=== PATIENT | male | born 1970 | race Caucasian/White ===

== ENCOUNTER 2023-08-21 02:48 | Emergency (ER) | payer BC ==
--- NOTE | 2023-08-21 02:58 | ED Physician Documentation ---
History of Present Illness - Stated complaint Stated Complaint: RT KNEE PX/SWOLLEN - Chief complaint Chief Complaint: Ext Problem - History obtained from History obtained from: Patient - Additonal information Additional information: HPI from patient. Patient complains of right knee pain, swelling, and erythema of gradual onset approximately 2 days ago. Denies injury. Denies history of similar symptoms. Pain is exacerbated with weight-bearing as well as movement (specifically with flexion of the right knee). Patient had air travel approximately 1 and half weeks ago. He denies chest pain, shortness of breath. Review of Systems Constitutional: denies: Fever, Chills, Sweats Cardiac: denies: Chest pain / pressure Respiratory: denies: Dyspnea, Cough Musculoskeletal: reports: Joint pain, Joint swelling, Pain with weight bearing PD PAST MEDICAL HISTORY - Past Medical History Past Medical History: Yes Psych: Depression - Present Medications Home Medications: Ambulatory Orders Medication Instructions Recorded Confirmed Doxycycline [Vibramycin] 100 mg PO BID #14 tablet 08/21/23 HYDROcod/ACETAM 5/325 [[place] 5/325] 1 - 2 tablet PO Q6H PRN #14 tablet 08/21/23 Sertraline HCl [Zoloft] 150 mg PO DAILY 08/21/23 08/21/23 buPROPion HCL [Bupropion HCl] 100 mg PO DAILY 08/21/23 08/21/23 - Allergies Allergies/Adverse Reactions: Allergies Allergy/AdvReac Type Severity Reaction Status Date / Time No Known Drug Allergies Allergy Verified 08/21/23 03:02 PD ED PE NORMAL - Vitals Vital signs reviewed: Yes - General General: Alert and oriented X 3, No acute distress, Well developed/nourished - Respiratory Respiratory: No respiratory distress PD ED PE EXPANDED - Extremities Extremities: Other (mild/faint, poorly-marginated erythema with mild swelling superiomedial aspect of right knee. the knee is nontender and ROM is intact although pain is exacerbated with full flexion. No abnormal warmth/heat to touch) Results - Vitals Vitals: Vital Signs - 24 hr 08/21/23 02:50 Temperature 36.7 C Heart Rate 78 Respiratory 16 Rate Blood Pressure 139/94 H O2 Saturation 100 Oxygen O2 Source Room air PD Medical Decision Making - ED course Complexity details: considered differential, d/w patient ED course: Presents with 2 days of atraumatic right knee pain, swelling, and faint erythema. Doubt septic arthritis given lack of tenderness to palpation, lack of abnormal warmth/heat to touch, and intact ROM (although pain is worse with full flexion). Given doxycycline for possible cellulitis although the erythema is without sharp/distinct margins. Also concern for possible DVT considering recent air travel, although lack of distal (ankle/foot) swelling make this less suspect; ultrasound is not available until later this morning. After discussion of DVT as a possibility, patient agrees with SQ lovenox (1mg/kg is given) as a bridge until he can have the US later today during US hours; he understands that this will entail checking back into the ED in order to have the study performed, and that he should arrive after 7 AM but no later than noon. Departure - Departure Disposition: 01 Home, Self Care Clinical Impression: Cellulitis Qualifiers: Site of cellulitis: extremity Site of cellulitis of extremity: lower extremity Laterality: right Qualified Code(s): L03.115 - Cellulitis of right lower limb Condition: Good Instructions: ED Infec Skin Cellulitis Follow-Up: CHRISTELLE MOORE [Primary Care Provider] - Prescriptions: HYDROcod/ACETAM 5/325 [[place] 5/325] 1 - 2 tablet PO Q6H PRN #14 tablet PRN Reason: Pain Doxycycline [Vibramycin] 100 mg PO BID #14 tablet Comments: Some of the findings on the physical exam are consistent with cellulitis (skin infection); you were given the first dose of an antibiotic (doxycycline) in the emergency department which should cover the typical bacterial causes of such an infection. I have electronically submitted a prescription for a 1-week course of this antibiotic to the [facility] in [place]. I have also sent a prescription for vicodin (opiate/narcotic pain medication), as well. Another possible cause of your knee pain and swelling is a DVT (deep vein thrombosis, blood clot in one of the deep veins of the leg); your recent airplane trips are a potential risk factor for DVT. The diagnosis of DVT requires an ultrasound, but the utility mechanic supervisor is not available until later today. You were given a one-time dose (injection) of a blood-thinning medication (Lovenox) as a bridge until an ultrasound can be performed later today. As we discussed, unfortunately, this means you we will need to return to the emergency department later today for this ultrasound. If there is a blood clot on the ultrasound, the on-duty emergency department physician will prescribe an oral blood-thinning medication for you. If the ultrasound is negative for blood clot, you will not need any more blood thinners. The ul trasonographer hours today are from 7 AM until 5 PM, but you should aim to arrive no later than noon today (if the emergency department is particularly busy, it can sometimes take quite some time to be evaluated by the on-duty physician who can then order the ultrasound). There are other possible causes of your symptoms such as bursitis, osteoarthritis, and gout. These possibilities can be looked into by your primary care provider in follow-up if your ultrasound does not demonstrate the cause of your symptoms (such as a blood clot) and if the antibiotic does not lead to resolution of your symptoms. I recommend that you contact your primary care provider when their office is next open to arrange for a follow-up appointment within 5 to 7 days for reevaluation. I am prescribing a short course of narcotic pain medication for you. These are potentially dangerous and addictive medications that should be used carefully. These medications may constipate you. Take an [id number] stool softener (docusate) twice daily with plenty of water while taking these medications. If you go 24 hours without a bowel movement, take [id number] miralax, per package instructions. Do not drink or drive while taking these medications. If you received narcotic or sedating medications while in the emergency department, do not drive for 24 hours. Store this medication in a safe, secure place and out of reach of children. It is a violation of federal law to give or sell this medication to another person or to use in a manner other than prescribed. The ED will not refill narcotic prescriptions, including prescriptions lost or stolen. To dispose of unwanted medications: 1. [facility] [address] [facility] in [place] has a medication drop box. They accept prescription medications (in pill form) Tuesday through Tuesday 9:00 a.m. to 5:00 p.m. 2. The [facility] [employer] accepts prescription medications (in pill form only) for disposal year round. Call for more information. 3. Contact the [facility] for the next [facility] sponsored prescription drug collection event. , [phone], or [phone]; Forms: Activity restrictions Discharge Date/Time: 08/21/23 03:55
[2023-08-21 03:05] VITALS: BP 139/94; O2SAT 100
[2023-08-21] MEDS: DOXYCYCLINE 100 MG TABLET PO STA (03:39)
[2023-08-21] MEDS: HYDROcod/ACETAM 5/325 MG TABLET PO STA (03:39)
[2023-08-21] MEDS: ENOXAPARIN 100 MG/ML SYRINGE SUBQ STA (03:44)
== END 2023-08-21 03:55 | disposition home or self-care (01) ==
LOC: ED 02:48
DX: L03.115 Cellulitis of right lower limb (principal)
CPT/HCPCS: 96372; 99284; A9270; J1650

== ENCOUNTER 2023-08-21 11:42 | Emergency (ER) | payer BC ==
[2023-08-21 11:51] VITALS: BP 140/90; O2SAT 96
--- NOTE | 2023-08-21 12:59 | ED Physician Documentation ---
PD HPI LOWER EXT INJURY - Stated complaint Stated Complaint: RT KNEE PX - Chief complaint Chief Complaint: Ext Problem - History obtained from History obtained from: Patient - History of Present Illness PD HPI LOW EXT INJURY LOCATION: Right, Knee, Lower leg, Calf (and back of knee.) Type of injury: No: Fall, Twist Timing - duration: Days Timing - details: Gradual onset, Still present Associated symptoms: Swelling (medial side of knee and towards back of calf laterally. Feels some tenderness in area.), Discolored (redness of the area.). No: Weakness, Numbness Recently seen: Emergency Dept (seen last night for the knee/leg pain. See prior ED note. Here for US leg as that was not able to be done at that hour.) PD PAST MEDICAL HISTORY - Past Medical History Past Medical History: Yes Cardiovascular: None Respiratory: None Neuro: None Endocrine/Autoimmune: None GI: None : None HEENT: None Psych: Depression Musculoskeletal: Osteoarthritis Derm: None - Past Surgical History Past Surgical History: No Ortho: Other HEENT: Myringotomy (tubes) - Present Medications Home Medications: Ambulatory Orders Medication Instructions Recorded Confirmed Doxycycline [Vibramycin] 100 mg PO BID #14 tablet 08/21/23 HYDROcod/ACETAM 5/325 [[place] 5/325] 1 - 2 tablet PO Q6H PRN #14 tablet 08/21/23 Sertraline HCl [Zoloft] 150 mg PO DAILY 08/21/23 08/21/23 buPROPion HCL [Bupropion HCl] 100 mg PO DAILY 08/21/23 08/21/23 - Allergies Allergies/Adverse Reactions: Allergies Allergy/AdvReac Type Severity Reaction Status Date / Time No Known Drug Allergies Allergy Verified 08/21/23 11:47 - Social History Does the pt smoke?: No Smoking Status: Never smoker Does the pt drink ETOH?: Yes Does the pt have substance abuse?: No - Immunizations Immunizations are current?: Yes - POLST Patient has POLST: No Results - Vitals Vitals: Oxygen O2 Source Room air - Rads (name of study) leg duplex US Relevant Findings:: Prelim report reviewed (report from raksul tech is no blood clots. ) PD Medical Decision Making - ED course Complexity details: reviewed results (duplex leg shows no DVT. ), considered differential (knee pain and upper calf area pain/tenderness. Some noted phlebitis lines/redness but not distinct venous cords. No skin sores. No bulges to suggest cyst. knee with mild swelling anteriorly. ), d/w patient Reviewed Lab Results: Pt was back today for US that was not able to be performed last night when here. There is tenderness in area of pain. Not distinct venoud cords. No skin lesions. Consider cellulitis as per Dx from last night. Could be an area of superficial phlebitis. I suggeted to him adding some NSAIDs to the antibiotic he was Rx. Warm towels to area. Departure - Departure Disposition: 01 Home, Self Care Clinical Impression: Right leg pain Condition: Stable Record reviewed to determine appropriate education?: Yes Follow-Up: CHRISTELLE MOORE [Primary Care Provider] - Comments: Your ultrasound is negative for blood clots in deep veins. There could be some inflammation in surface veins (Phleibits). Presume possibly muscular type pain through the area. Consider skin infection. Continue with the antibiotic you are prescribed, doxycycline. I would suggest adding an anti-inflammatory such as naproxen or ibuprofen 2-3 times daily over the next several days to week. See how the symptoms progress or evolve over the next several days or if new symptoms develop. Forms: PCP List Discharge Date/Time: 08/21/23 13:32
--- NOTE | 2023-08-21 14:13 | Ultrasound Report ---
PROCEDURE: Duplex Ext Veins Right INDICATIONS: pain TECHNIQUE: Real-time imaging, as well as color and pulse Doppler interrogation, were performed of the lower extr emity deep veins from the inguinal ligament to the popliteal fossa. Attempted visualization of the ca lf veins was performed. COMPARISON: None. FINDINGS: The deep veins are normally compressible, and free of intraluminal thrombus. Color and pu lse Doppler demonstrate normal phasic intraluminal flow. There is normal augmentation response to di stal compression maneuver. IMPRESSION: No deep venous thrombosis of the visualized lower extremity. Reviewed by: Cale Pineda MD on 08/21/2023 2:12 PM PST Approved by: Cale Pineda MD on 08/21/2023 2:12 PM PST Station ID: [id number]
== END 2023-08-21 13:32 | disposition home or self-care (01) ==
LOC: ED 11:42
DX: M79.604 Pain in right leg (principal); L03.115 Cellulitis of right lower limb
CPT/HCPCS: 96372; 99284

== ENCOUNTER 2023-10-21 13:08 | Outpatient (CLI) | payer BC ==
[2023-10-21 20:09] LABS: BASOPHILS # (AUTO) 0.1 10^3/uL (0.0-0.1); BILIRUBIN,URINE NEGATIVE (NEGATIVE); EOSINOPHILS # (AUTO) 0.1 10^3/uL (0.0-0.7); EOSINOPHILS % (AUTO) 1.9 %; GLUCOSE, URINE (UA) NEGATIVE (NEGATIVE); HGB - HEMOGLOBIN 13.2 g/dL (14.0-18.0); KETONES,URINE (UA) NEGATIVE (NEGATIVE); LEUKOCYTE ESTERASE, URINE NEGATIVE (NEGATIVE); LYMPHOCYTES # (AUTO) 1.4 10^3/uL (1.5-3.5); LYMPHOCYTES % (AUTO) 26.3 %; MEAN CORPUSCULAR HEMOGLOBIN 28.4 pg (27.0-31.0); MEAN CORPUSCULAR HGB CONC 32.2 g/dL (32.0-36.0); MEAN CORPUSCULAR VOLUME 88.2 fL (80.0-94.0); MEAN PLATELET VOLUME 9.4 fL (7.4-11.4); MONOCYTES # (AUTO) 0.6 10^3/uL (0.0-1.0); MONOCYTES % (AUTO) 10.8 %; NEUTROPHILS # (AUTO) 3.1 10^3/uL (1.5-6.6); NEUTROPHILS % (AUTO) 59.6 %; NITRITE,URINE NEGATIVE (NEGATIVE); OCCULT BLOOD,URINE NEGATIVE (NEGATIVE); PH,URINE 5.5 PH (5.0-7.5); PLT - PLATELET COUNT 248 10^3/uL (130-450); PROTEIN,URINE NEGATIVE (NEGATIVE); RED BLOOD COUNT 4.65 10^6/uL (4.70-6.10); RED CELL DISTRIBUTION WIDTH 13.2 % (12.0-15.0); UROBILINOGEN,URINE 0.2 (NORMAL) E.U./dL (NORMAL); WHITE BLOOD COUNT 5.2 x10^3/uL (4.8-10.8)
[2023-10-21 20:29] LABS: CLARITY,URINE CLEAR (CLEAR)
[2023-10-21 20:31] LABS: ALBUMIN 4.2 g/dL (3.2-5.5); ALBUMIN/GLOBULIN RATIO 1.8 (1.0-2.2); BILIRUBIN,TOTAL 0.6 mg/dL (0.2-1.0); CALCIUM 9.5 mg/dL (8.5-10.3); CREATININE 0.9 mg/dL (0.6-1.3); POTASSIUM 4.1 mmol/L (3.5-4.5); TOTAL PROTEIN 6.5 g/dL (6.4-8.9)
[2023-10-21 20:33] LABS: BACTERIA,URINE None Seen /HPF (None Seen); RBC,URINE None Seen /HPF (0-5); SQUAMOUS EPITHELIAL CELL,UR NONE SEEN (<= Few); WBC,URINE 0-3 /HPF (0-3)
[2023-10-21 20:49] LABS: PARTIAL THROMBOPLASTIN TIME 29.5 secs (24.9-33.3)
[2023-10-21 20:54] LABS: PT - PROTHROMBIN TIME 11.2 secs (9.9-12.6)
== END 2023-10-21 13:09 | disposition home or self-care (01) ==
LOC: LAB.S 13:08
PROVIDERS: ATTEND Hospitalist
DX: Z01.818 Encounter for other preprocedural examination (principal); Z12.5 Encounter for screening for malignant neoplasm of prostate
CPT/HCPCS: 36415; 80053; 81001; 82985; 84153; 85025; 85610; 85730

== ENCOUNTER 2023-12-19 08:00 | Outpatient (CLI) | payer BC ==
--- NOTE | 2023-12-19 19:03 | XRAY Report ---
PROCEDURE: Chest 2V INDICATIONS: BRONCHITIS TECHNIQUE: 2 views of the chest were acquired. COMPARISON: None. FINDINGS: Surgical changes and devices: Right humeral head resurfacing. Lungs and pleura: No pleural effusions or pneumothorax. Lungs are clear. Mediastinum: Mediastinal contours appear normal. Heart size is normal. Bones and chest wall: No suspicious bony lesions. Overlying soft tissues appear unremarkable. IMPRESSION: No acute cardiopulmonary process. Reviewed by: Jaiden Brito MD on 12/19/2023 7:01 PM PDT Approved by: Jaiden Brito MD on 12/19/2023 7:01 PM PDT Station ID: [id number]
== END 2023-12-19 23:59 | disposition home or self-care (01) ==
LOC: DI.S 08:00
PROVIDERS: ATTEND Emergency Medicine
DX: J40 Bronchitis, not specified as acute or chronic (principal)